=== PATIENT | female | born 1960 ===

== ENCOUNTER 2016-08-16 23:05 | Inpatient (IN) | payer OTHER, SELFPAY ==
[2016-08-17 00:25] LABS: BASO # 0.1 K/uL (0.0-0.2); BASO % 0.6 % (0.0-2.0); EOS # 0.2 K/uL (0.0-0.7); EOS % 1.9 % (0.0-4.0); HEMATOCRIT 39.8 % (34.0-47.0); LYMPH # 4.4 K/uL (1.0-4.3); LYMPH % 45.4 % (20.0-40.0); MEAN CELL VOLUME 87.3 fl (81.0-99.0); MEAN CORPUSCULAR HEMOGLOBIN 28.4 pg (27.0-31.0); MEAN CORPUSCULAR HGB CONC 32.6 g/dL (33.0-37.0); MEAN PLATELET VOLUME 7.9 fl (7.2-11.7); MONO # 0.7 K/uL (0.0-0.8); MONO % 7.5 % (0.0-10.0); NEUT # 4.3 K/uL (1.8-7.0); NEUT % 44.6 % (50.0-75.0); NRBC % 0.1 % (0.0-0.0); RED CELL DISTRIBUTION WIDTH 13.3 % (11.5-14.5); WHITE BLOOD COUNT 9.7 K/uL (4.8-10.8)
[2016-08-17 00:33] LABS: ALB/GLOB RATIO 1.1 (1.0-2.1); ALKALINE PHOSPHATASE 76 U/L (38-126); ALT/SGPT 34 U/L (9-52); AST/SGOT 28 U/L (14-36); BILIRUBIN,TOTAL 0.4 mg/dl (0.2-1.3); BLOOD UREA NITROGEN 14 mg/dl (7-17); CALCIUM 10.1 mg/dL (8.4-10.2); CARBON DIOXIDE 28 mmol/L (22-30); CHLORIDE 100 mmol/L (98-107); GFR AFRICAN-AMERICAN > 60; GLUCOSE,RANDOM 142 mg/dL (65-105); POTASSIUM 3.9 MMOL/L (3.6-5.0); SODIUM 140 mmol/l (132-148); TOTAL PROTEIN 8.3 G/DL (6.3-8.2)
--- NOTE | 2016-08-17 00:51 | ED PDOC ---
HPI: General Adult Time Seen by Provider: 08/16/16 23:30 Chief Complaint (Nursing): Chest Pain Chief Complaint (Provider): left sided numbness and chest pain History Per: Patient History/Exam Limitations: no limitations Onset/Duration Of Symptoms: Days (2) Have you had recent travel within the past 21 days to any of the following countries: [place], [place], [place] or [place]?: No Current Symptoms Are (Timing): Still Present Additional Complaint(s): 55yo female with PMHx including diabetes, dyslipidemia, HTN presents to the ED with c/o left sided numbness and chest pain x 2 days. Patient reports numbness sensation to entire left side of body. Denies n/v, diaphoresis. Reports similar symptoms 1 year ago and had workup that was negative. Currently awaiting cardiac catheterization after being referred by her PCP (Dr. Lares) at the clinic. Past Medical History Reviewed: Historical Data, Nursing Documentation, Vital Signs Vital Signs: Last Vital Signs Temp 99 F 08/16/16 23:14 Pulse 84 08/16/16 23:14 Resp 18 08/16/16 23:14 BP 150/93 H 08/16/16 23:14 Pulse Ox 100 08/16/16 23:14 - Medical History PMH: Diabetes, HTN, Hypercholesterolemia Denies: Chronic Kidney Disease Other PMH: dyslipidemia - Surgical History Surgical History: - Family History Family History: States: No Known Family Hx - Social History Current smoker - smoking cessation education provided: No Alcohol: None Drugs: Denies - Home Medications Home Medications: Ambulatory Orders Medication Instructions Recorded Simvastatin [Zocor] 20 mg PO HS 11/08/14 Hydrochlorothiazide [HCTZ] 12.5 mg PO DAILY 08/26/15 GlipiZIDE [Glucotrol] 5 mg PO DAILY 08/17/16 metFORMIN [glucOPHAGE] 500 mg PO BID 08/17/16 - Allergies Allergies/Adverse Reactions: Allergies Allergy/AdvReac Type Severity Reaction Status Date / Time No Known Allergies Allergy Verified 03/05/16 18:09 Review of Systems ROS Statement: Except As Marked, All Systems Reviewed And Found Negative Constitutional: Positive for: Other (no diaphoresis ) Cardiovascular: Positive for: Chest Pain (left sided ) Gastrointestinal: Negative for: Nausea, Vomiting Neurological: Positive for: Numbness (left sided ) Physical Exam - Reviewed Nursing Documentation Reviewed: Yes Vital Signs Reviewed: Yes - Physical Exam Appears: Positive for: Well, No Acute Distress Head Exam: Positive for: ATRAUMATIC, NORMAL INSPECTION, NORMOCEPHALIC Skin: Positive for: Normal Color, Warm, Dry Eye Exam: Positive for: Normal appearance, EOMI, PERRL ENT: Positive for: Normal ENT Inspection Neck: Positive for: Normal, Painless ROM, Supple Cardiovascular/Chest: Positive for: Regular Rate, Rhythm. Negative for: Murmur , Tachycardia Respiratory: Positive for: Normal Breath Sounds. Negative for: Wheezing, Respiratory Distress Gastrointestinal/Abdominal: Positive for: Normal Exam, Bowel Sounds, Soft. Negative for: Tenderness Back: Positive for: Normal Inspection. Negative for: L CVA Tenderness, R CVA Tenderness Extremity: Positive for: Normal ROM. Negative for: Deformity, Swelling Neurologic/Psych: Positive for: Alert, Oriented - Laboratory Results Result Diagrams: 08/16/16 00:21 08/16/16 00:21 - ECG O2 Sat by Pulse Oximetry: 100 Pulse Ox Interpretation: Normal (RA) Medical Decision Making Medical Decision Makin: Impression: 55yo female w/ left sided chest pain and numbness in setting of known hx of diabetes, HTN, dyslipidemia Plan: CT head Labs EKG CXR Aspirin 324mg PO accucheck reassess 0025: CT head impression: No acute intracranial findings. Clinical correlation and followup is recommended as clinically warranted. 0050: Case discussed with family practice resident on-call and patient will be placed on chest pain obs. Labs reviewed, show no clinically significant abnormalities. CXR shows NAD. Dx: chest pain condition: fair Scribe Attestation: Documented by Anthony Jarvis acting as a scribe for Jose Becerra MD. Provider Scribe Attestation: All medical record entries made by the Scribe were at my direction and personally dictated by me. I have reviewed the chart and agree that the record accurately reflects my personal performance of the history, physical exam, medical decision making, and the department course for this patient. I have also personally directed, reviewed, and agree with the discharge instructions and disposition. Disposition - Clinical Impression Clinical Impression: Chest pain - Disposition Disposition Time: 00:50 Condition: FAIR - Pt Status Changed To: Hospital Disposition Of: Observation
[2016-08-17 00:59] LABS: PARTIAL THROMBOPLASTIN TIME 23.8 SECONDS (23.3-32.5)
--- NOTE | 2016-08-17 00:59 | CP.PCM.HP ---
History of Present Illness - History of Present Illness History of Present Illness: CC: 2 days of left sided numbness and chest pain 55 yo F with PMHx diabetes, dyslipidemia, HTN presents to the ED with c/o left sided numbness and chest pain x 2 days. Chest pain is described as left sided, burning type sensation. Aggravated by climbing stairs, alleviated by rest. Patient reports numbness sensation waxes and wanes to entire left side of body including her head. Patient also reports dyspnea on exertion x 1 month. Gets SOB after climbing 1 flight of stairs, reports not walking much at all. Reports similar symptoms 1 year ago and had workup that was negative. Denies history of ME or stroke. Denies ALARCON, syncope, focal weakness, blurry vision palpitations, n/v/ abd pain/diarrhea. Currently awaiting cardiac evaluation with Dr Cochran, referred by PCP after some T wave depression and LVH was seen on patient's EKG in clinic. Patient has a cardio appt at [facility] scheduled for September 15 PCP [facility] (Dr. Lares) PMH: diabetes, dyslipidemia, HTN PSH: hysterectomy, CS x2 SH: no tob, etoh, drugs Allergies: NKDA Meds: as per [facility] GlipiZIDE 5 MG Tablet once daily Hydrochlorothiazide 12.5 MG daily Metformin HCl 500 MG BID Simvastatin 40 MG daily ED Course: VS stable, afebrile, slightly elevated BP CT head wnl Labs EKG - some T wave changes, no ST elevation CXR Aspirin 324mg PO Present on Admission - Present on Admission Any Indicators Present on Admission: No Review of Systems - Review of Systems Review of Systems: see hpi Past Patient History - Infectious Disease Hx of Infectious Diseases: None - Tetanus Immunizations Tetanus Immunization: Unknown - Past Medical History & Family History Past Medical History?: Yes - Past Social History Alcohol: None Drugs: Denies - CARDIAC Hx Hypercholesterolemia: Yes Hx Hypertension: Yes - PULMONARY Hx Respiratory Disorders: No - NEUROLOGICAL Hx Neurological Disorder: No - HEENT Hx HEENT Problems: No - RENAL Hx Chronic Kidney Disease: No - ENDOCRINE/METABOLIC Hx Endocrine Disorders: Yes Hx Diabetes Mellitus Type 2: Yes - HEMATOLOGICAL/ONCOLOGICAL Hx Blood Disorders: No - INTEGUMENTARY Hx Dermatological Problems: No - MUSCULOSKELETAL/RHEUMATOLOGICAL Hx Musculoskeletal Disorders: No - GASTROINTESTINAL Hx Gastrointestinal Disorders: No - GENITOURINARY/GYNECOLOGICAL Hx Genitourinary Disorders: No - PSYCHIATRIC Hx Psychophysiologic Disorder: No Hx Substance Use: No - SURGICAL HISTORY Hx Hysterectomy: Yes - ANESTHESIA Hx Anesthesia: Yes Hx Anesthesia Reactions: No Meds Allergies/Adverse Reactions: Allergies Allergy/AdvReac Type Severity Reaction Status Date / Time No Known Allergies Allergy Verified 03/05/16 18:09 Physical Exam - Constitutional Appears: Non-toxic, No Acute Distress - Head Exam Head Exam: ATRAUMATIC - Eye Exam Eye Exam: EOMI Pupil Exam: PERRL - ENT Exam ENT Exam: Mucous Membranes Moist - Neck Exam Neck exam: Positive for: Full Rom. Negative for: Tenderness - Respiratory Exam Respiratory Exam: Clear to Auscultation Bilateral, NORMAL BREATHING PATTERN. absent: Rales, Rhonchi, Wheezes, Stridor - Cardiovascular Exam Cardiovascular Exam: +S1, +S2. absent: JVD - GI/Abdominal Exam GI & Abdominal Exam: Normal Bowel Sounds, Soft. absent: Guarding, Tenderness - Extremities Exam Extremities exam: Positive for: normal inspection. Negative for: calf tenderness, pedal edema - Neurological Exam Neurological exam: Alert, CN II-XII Intact, Oriented x3 - Psychiatric Exam Psychiatric exam: Normal Affect, Normal Mood - Skin Skin Exam: Dry, Normal Color, Warm Results - Vital Signs Recent Vital Signs: Last Vital Signs Temp 99 F 08/16/16 23:14 Pulse 84 08/16/16 23:14 Resp 18 08/16/16 23:14 BP 150/93 H 08/16/16 23:14 Pulse Ox 100 08/17/16 00:55 - Labs Result Diagrams: 08/16/16 00:21 08/16/16 00:21 Assessment & Plan - Assessment and Plan (Free Text) Plan: 55 yo F with PMHx diabetes, dyslipidemia, HTN admitted for left sided numbness and chest pain x 2 days. Chest pain ED Course: VS stable, afebrile, slightly elevated BP CT head wnl CBC, CMP Troponins x 1 negative EKG - some T wave changes, no ST elevation CXR - appears WNL Aspirin 324mg PO admit to telemetry cardiac monitoring trop Q8H x 2 Last ECHO 2014: EF>50%, normal ECHO repeat ECHO in AM in lieu of risk factors and new EKG findings Patient has a cardio appt at [facility] scheduled for September 15 morphine for pain aspirin daily BP control Left sided numbness CT head: no abnormal findings DM controlled c/w metformin BID and glipizide daily HTN controlled HCTZ 12.5 mg daily PPx DVT - ambulates, SCDs Diet diabetic diet, HH
[2016-08-17 05:48] VITALS: BMI 33.6
[2016-08-17] MEDS ORDERED: Pneumococcal 23-Valent Vaccine IM ONE (06:00)
[2016-08-17 07:44] LABS: GFR AFRICAN-AMERICAN > 60
[2016-08-17 07:45] LABS: BLOOD UREA NITROGEN 13 mg/dl (7-17); GLUCOSE,RANDOM 136 mg/dL (65-105); POTASSIUM 4.1 MMOL/L (3.6-5.0); SODIUM 141 mmol/l (132-148)
[2016-08-17 07:46] LABS: CALCIUM 9.5 mg/dL (8.4-10.2); CARBON DIOXIDE 28 mmol/L (22-30); CHLORIDE 102 mmol/L (98-107)
[2016-08-17 08:07] LABS: HEMATOCRIT 37.2 % (34.0-47.0); MEAN CELL VOLUME 86.9 fl (81.0-99.0); MEAN CORPUSCULAR HEMOGLOBIN 28.5 pg (27.0-31.0); MEAN CORPUSCULAR HGB CONC 32.8 g/dL (33.0-37.0); MEAN PLATELET VOLUME 8.2 fl (7.2-11.7); RED CELL DISTRIBUTION WIDTH 13.4 % (11.5-14.5); WHITE BLOOD COUNT 8.6 K/uL (4.8-10.8)
[2016-08-17] MEDS ORDERED: HYDROCHLOROTHIAZIDE 12.5 MG PO SCH (09:00)
--- NOTE | 2016-08-17 09:47 | RAD ---
HISTORY: admit COMPARISON: 03/05/2016 TECHNIQUE: Chest PA and lateral FINDINGS: LUNGS: No active pulmonary disease. PLEURA: No significant pleural effusion identified. No pneumothorax apparent. CARDIOVASCULAR: Normal. OSSEOUS STRUCTURES: Minor multilevel degenerative spondylosis of the thoracic spine VISUALIZED UPPER ABDOMEN: Normal. OTHER FINDINGS: None. IMPRESSION: No active disease.
--- NOTE | 2016-08-17 09:56 | CT ---
PROCEDURE: CT HEAD WITHOUT CONTRAST. HISTORY: headache COMPARISON: None available. TECHNIQUE: Axial computed tomography images were obtained through the head/brain without intravenous contrast. Radiation dose: Total exam DLP = 851.21 mGy-cm. This CT exam was performed using one or more of the following dose reduction techniques: Automated exposure control, adjustment of the mA and/or kV according to patient size, and/or use of iterative reconstruction technique. FINDINGS: HEMORRHAGE: No intracranial hemorrhage. BRAIN: There appears to be minor chronic periventricular white matter ischemic changes extending peripherally into the deep white matter both cerebral hemispheres. Mild age-appropriate generalized volume loss VENTRICLES: No evidence of obstructive hydrocephalus. CALVARIUM: Unremarkable. PARANASAL SINUSES: Unremarkable as visualized. No significant inflammatory changes. MASTOID AIR CELLS: Unremarkable as visualized. No inflammatory changes. OTHER FINDINGS: None. IMPRESSION: No acute intracranial hemorrhage. Minor chronic periventricular white matter ischemic changes and mild age related volume loss.
--- NOTE | 2016-08-17 12:09 | CARD ---
APPROVED REPORT EXAM: Two-dimensional and M-mode echocardiogram with Doppler and color Doppler. Other Information Quality : GoodRhythm : NSR INDICATION Chest Pain 2D DIMENSIONS IVSd1.17 (0.7-1.1cm)LVDd4.00 (3.9-5.9cm) LVOT Diameter2.03 (1.8-2.4cm)PWd0.93 (0.7-1.1cm) IVSs1.39 (0.8-1.2cm)LVDs2.36 (2.5-4.0cm) FS (%) 41.0 %PWs1.30 (0.8-1.2cm) M-Mode DIMENSIONS Left Atrium (MM)4.06 (2.5-4.0cm)IVSd0.79 (0.7-1.1cm) Aortic Root2.94 (2.2-3.7cm)LVDd5.21 (4.0-5.6cm) Aortic Cusp Exc.2.06 (1.5-2.0cm)PWd0.79 (0.7-1.1cm) IVSs1.29 cmFS (%) 51 % LVDs2.56 (2.0-3.8cm)PWs1.53 cm Mitral Valve MV E Twcfaxzu38.2cm/sMV DECEL [id number] A Ybaqiwao16.8cm/s MV CXB47zbE/A ratio0.7MVA (PHT)2.82cm2 TDI Lateral E' Peak V8.31cm/sMedial E' Peak V6.52cm/sE/Lateral E'7.0 E/Medial E'8.9 Pulmonary Valve PV Peak Hrbrhljd511.5cm/s LEFT VENTRICLE The left ventricle is normal size. There is normal left ventricular wall thickness. The left ventricular function is normal. The left ventricular ejection fraction is within the normal range. The Ejection Fraction is 65-70%. There is normal LV segmental wall motion. The left ventricular diastolic function is normal. No left ventricle thrombus noted on this study. There is no mass noted in the left ventricle. RIGHT VENTRICLE The right ventricle is normal size. There is normal right ventricular wall thickness. The right ventricular systolic function is normal. ATRIA The left atrium size is normal. The right atrium size is normal. The interatrial septum is intact with no evidence for an atrial septal defect. AORTIC VALVE The aortic valve is normal in structure and function. No aortic regurgitation is present. There is no aortic valvular stenosis. There is no aortic valvular vegetation. MITRAL VALVE The mitral valve is normal in structure and function. There is no evidence of mitral valve prolapse. There is no mitral valve stenosis. There is no mitral valve regurgitation noted. TRICUSPID VALVE The tricuspid valve is normal in structure and function. There is no tricuspid valve regurgitation noted. There is no tricuspid valve prolapse or vegetation. There is no tricuspid valve stenosis. PULMONIC VALVE The pulmonary valve is normal in structure and function. There is no pulmonic valvular regurgitation. There is no pulmonic valvular stenosis. GREAT VESSELS The aortic root is normal in size. The IVC is normal in size and collapses >50% with inspiration. PERICARDIAL EFFUSION The pericardium appears normal. There is no pleural effusion. <Conclusion> The left ventricle is normal size. The left ventricular function is normal. The left ventricular ejection fraction is within the normal range. The Ejection Fraction is 65-70%.
--- NOTE | 2016-08-17 12:18 | CON ---
DATE: 08/17/2016 REASON FOR CONSULTATION: Chest pain. HISTORY OF PRESENT ILLNESS: The patient is a 55-year-old female who has history of hyperten zoë, diabetes mellitus, is being followed in the clinic. She presented because of chest pain radiat ing to left shoulder and left arm. The patient is unaware of any prior cardiac catheterization or in tervention in the past. SOCIAL HISTORY: The patient is a nonsmoker, nondrinker. MEDICATIONS: Aspirin 81 mg once a day, metformin 500 mg twice a day, glipizide 5 mg daily, Lipitor 2 0 mg at bedtime, Lovenox 40 mg subcutaneously daily, hydrochlorothiazide 12.5 mg once a day. REVIEW OF SYSTEMS: No fever or chills. No vomiting or diarrhea. PHYSICAL EXAMINATION: GENERAL: The patient is a middle-aged female who does not appear to be in any distress. VITAL SIGNS: Blood pressure 116/73, heart rate 72, temperature 98.3, respirations 20. HEENT: Normocephalic. NECK: No JVD. CHEST: Clear. HEART: S1, S2 regular. ABDOMEN: Soft. EXTREMITIES: No edema. LABORATORY DATA: CBC is within normal limits except for MCHC of 8.8. SMA-7 on admission is within n ormal limits except for glucose of 142. Two sets of troponins are negative. PT, PTT are within norm al limits. EKG reveals sinus rhythm with lateral T-wave inversion. ASSESSMENT: 1. Chest pain, myocardial infarction is ruled out. 2. Consider underlying coronary artery disease. 3. Hypertension and diabetes mellitus. RECOMMENDATIONS: Continue current aspirin, Lipitor, subcutaneous Lovenox, start Tenormin at 25 mg on ce a day. Cardiac catheterization was recommended and was fully discussed with the patient and her d emile on the phone. The daughter was conducting the translation on the phone. I stated to the pat yusuf and the daughter, if the patient agrees to stay until Saturday, she will undergo cardiac catheteri zation at the [facility] cardiac catheterization facility. The patient and her daughter will think ab out staying until Saturday before giving any decision. Otherwise, the cardiac catheterization should b e scheduled as an outpatient if the patient decides to leave. Bar Mendoza MD cc: [id number] TT: 08/17/2016 12:17:36 Confirmation # [id number] Dictation # [id number]
[2016-08-17] MEDS ORDERED: Enoxaparin 40 mg Syringe SC SCH (20:00)
[2016-08-18 05:45] VITALS: RESP 18; O2SAT 97
--- NOTE | 2016-08-18 07:15 | CP.PCM.PN ---
Objective - Vital Signs/Intake and Output Vital Signs (last 24 hours): Temp Pulse Resp BP Pulse Ox 98.2 F 68 18 110/74 97 08/18/16 05:00 08/18/16 05:00 08/18/16 05:00 08/18/16 05:00 08/18/16 05:00 - Medications Medications: Current Medications Acetaminophen (Tylenol 325mg Tab) 650 mg PO Q6 PRN PRN Reason: Pain, Mild (1-3) Aspirin (Aspirin Chewable) 81 mg PO DAILY [facility] Last Admin: 08/17/16 09:29 Dose: 81 mg Atenolol (Tenormin) 25 mg PO DAILY [facility] Atorvastatin Calcium (Lipitor) 20 mg PO HS [facility] Last Admin: 08/17/16 23:03 Dose: 20 mg Clopidogrel Bisulfate (Plavix) 75 mg PO DAILY [facility] Last Admin: 08/17/16 12:00 Dose: 75 mg Enoxaparin Sodium (Lovenox) 40 mg SC DAILY@2000 [facility] PRN Reason: Protocol Last Admin: 08/17/16 20:08 Dose: Not Given Glipizide (Glucotrol) 5 mg PO DAILY [facility] Last Admin: 08/17/16 09:29 Dose: 5 mg Hydrochlorothiazide (Microzide) 12.5 mg PO DAILY [facility] Last Admin: 08/17/16 09:30 Dose: 12.5 mg Morphine Sulfate (Morphine) 2 mg IVP Q4 PRN PRN Reason: Pain, moderate (4-7) Ondansetron HCl (Zofran Inj) 4 mg IVP Q6 PRN PRN Reason: Nausea/Vomiting Last Admin: 08/17/16 22:13 Dose: 4 mg - Labs Labs: 08/17/16 06:30 08/17/16 06:30 PT 9.9 SECONDS (9.6-11.2) 08/16/16 00:21 INR 0.95 (0.92-1.08) 08/16/16 00:21 APTT 23.8 SECONDS (23.3-32.5) 08/16/16 00:21
[2016-08-18 07:58] VITALS: TEMP 98.1
--- NOTE | 2016-08-18 09:20 | CARD ---
APPROVED REPORT EKG Measurement Heart [id number] MO [id number] <Conclusion> Normal sinus rhythm ST & T wave abnormality, consider lateral ischemia Abnormal ECG
--- NOTE | 2016-08-18 09:26 | CARD ---
APPROVED REPORT EKG Measurement Heart [id number] ID [id number] <Conclusion> Normal sinus rhythm Nonspecific T wave abnormality Abnormal ECG
--- NOTE | 2016-08-18 09:53 | CP.PCM.DIS ---
Provider - Provider Date of Admission: 08/17/16 00:17 Attending physician: Janet Porter MD Primary care physician: Saritha Lares MD Consults: cardiology: Arthur Ybarra Time Spent in preparation of Discharge (in minutes): 45 Diagnosis - Discharge Diagnosis (1) Chest pain in adult Status: Resolved Priority: Low Comment: cardiac catheterization: unremarkable, medical management Hospital Course - Lab Results Lab Results: Most Recent Lab Values WBC 8.6 K/uL (4.8-10.8) 08/17/16 06:30 RBC 4.28 Mil/uL (3.80-5.20) 08/17/16 06:30 Hgb 12.2 g/dL (12.0-16.0) 08/17/16 06:30 Hct 37.2 % (34.0-47.0) 08/17/16 06:30 MCV 86.9 fl (81.0-99.0) 08/17/16 06:30 MCH 28.5 pg (27.0-31.0) 08/17/16 06:30 MCHC 32.8 g/dL (33.0-37.0) L 08/17/16 06:30 RDW 13.4 % (11.5-14.5) 08/17/16 06:30 Plt Count 292 K/uL (130-400) 08/17/16 06:30 MPV 8.2 fl (7.2-11.7) 08/17/16 06:30 Neut % (Auto) 44.6 % (50.0-75.0) L 08/16/16 00:21 Lymph % (Auto) 45.4 % (20.0-40.0) H 08/16/16 00:21 Wilkinson % (Auto) 7.5 % (0.0-10.0) 08/16/16 00:21 Eos % (Auto) 1.9 % (0.0-4.0) 08/16/16 00:21 Baso % (Auto) 0.6 % (0.0-2.0) 08/16/16 00:21 Neut # 4.3 K/uL (1.8-7.0) 08/16/16 00:21 Lymph # 4.4 K/uL (1.0-4.3) H 08/16/16 00:21 Wilkinson # 0.7 K/uL (0.0-0.8) 08/16/16 00:21 Eos # 0.2 K/uL (0.0-0.7) 08/16/16 00:21 Baso # 0.1 K/uL (0.0-0.2) 08/16/16 00:21 PT 9.9 SECONDS (9.6-11.2) 08/16/16 00:21 INR 0.95 (0.92-1.08) 08/16/16 00:21 APTT 23.8 SECONDS (23.3-32.5) 08/16/16 00:21 Sodium 141 mmol/l (132-148) 08/17/16 06:30 Potassium 4.1 MMOL/L (3.6-5.0) 08/17/16 06:30 Chloride 102 mmol/L (98-107) 08/17/16 06:30 Carbon Dioxide 28 mmol/L (22-30) 08/17/16 06:30 Anion Gap 15 (10-20) 08/17/16 06:30 BUN 13 mg/dl (7-17) 08/17/16 06:30 Creatinine 0.6 mg/dL (0.7-1.2) L 08/17/16 06:30 Est GFR ( Amer) > 60 08/17/16 06:30 Est GFR (Non-Af Amer) > 60 08/17/16 06:30 POC Glucose (mg/dL) 134 mg/dL (65-110) H 08/18/16 05:28 Random Glucose 136 mg/dL (65-105) H 08/17/16 06:30 Calcium 9.5 mg/dL (8.4-10.2) 08/17/16 06:30 Total Bilirubin 0.4 mg/dl (0.2-1.3) 08/16/16 00:21 AST 28 U/L (14-36) 08/16/16 00:21 ALT 34 U/L (9-52) 08/16/16 00:21 Alkaline Phosphatase 76 U/L (38-126) 08/16/16 00:21 Troponin I < 0.0120 ng/mL (0.00-0.120) 08/17/16 09:35 Total Protein 8.3 G/DL (6.3-8.2) H 08/16/16 00:21 Albumin 4.4 g/dL (3.5-5.0) 08/16/16 00:21 Globulin 3.9 gm/dL (2.2-3.9) 08/16/16 00:21 Albumin/Globulin Ratio 1.1 (1.0-2.1) 08/16/16 00:21 - Hospital Course Hospital Course: 55 yo F with PMHx diabetes, dyslipidemia, HTN presents to the ED with c/o left sided numbness and chest pain x 2 days admitted to rule out ACS. Troponin negative, ekg showed t wave inversion, ct head: unremarkable. Cardiology consulted, performed cardiac catherization which was unremarkable, and recommended medical management at this time with Aspirin, statin, hctz and atenolol. Continue with home medication: Simvastatin [Zocor] 20 mg PO HS Hydrochlorothiazide [HCTZ] 12.5 mg PO DAILY GlipiZIDE [Glucotrol] 5 mg PO DAILY metFORMIN [glucOPHAGE] 500 mg PO BID New Discharge rx: atenolol 25mg po once Appointment scheduled with Dr. Lares on September 13 2016 @1:20pm Pt states she has an appointment with Estela Shaw (cardiology) in September. Discharge Exam - Head Exam Head Exam: ATRAUMATIC - Additional Findings Additional findings: Constitutional Appears: Non-toxic, No Acute Distress - Head Exam Head Exam: ATRAUMATIC - Eye Exam Eye Exam: EOMI Pupil Exam: PERRL - ENT Exam ENT Exam: Mucous Membranes Moist - Neck Exam Neck exam: Positive for: Full Rom. Negative for: Tenderness - Respiratory Exam Respiratory Exam: Clear to Auscultation Bilateral, NORMAL BREATHING PATTERN. absent: Rales, Rhonchi, Wheezes, Stridor - Cardiovascular Exam Cardiovascular Exam: +S1, +S2. absent: JVD - GI/Abdominal Exam GI & Abdominal Exam: Normal Bowel Sounds, Soft. absent: Guarding, Tenderness - Extremities Exam Extremities exam: Positive for: normal inspection. Negative for: calf tenderness, pedal edema - Neurological Exam Neurological exam: Alert, CN II-XII Intact, Oriented x3 - Psychiatric Exam Psychiatric exam: Normal Affect, Normal Mood - Skin Skin Exam: Dry, Normal Color, Warm Discharge Plan - Discharge Medications Prescriptions: GlipiZIDE [Glucotrol] 5 mg PO DAILY #30 - Follow Up Plan Condition: FAIR Disposition: HOME/ ROUTINE Patient education suggested?: Yes Instructions: Angina (GEN), Angina (DC) Additional Instructions: Pt has appointment with cardiology, Anthony Shaw in September. Referrals: Saritha Lares MD [Primary Care Provider] - 09/13/16 1:20 pm
[2016-08-18 12:12] VITALS: BP 109/70; PULSE 70
--- NOTE | 2016-08-18 13:57 | PN ---
DATE: 08/18/2016 The patient denies chest pain or groin bleeding. VITAL SIGNS: Blood pressure 109/70, heart rate 70, temperature 98.1, respirations 18. GROIN: Revealed no bleeding or hematoma. ASSESSMENT: 1. Chest pain with left cardiac catheterization revealed unremarkable coronary circulation. 2. Hypertension, diabetes mellitus. RECOMMENDATIONS: The case is discussed with the medical team. Discontinue Plavix. The patient can be discharged on aspirin, Lipitor, hydrochlorothiazide and atenolol therapy. Bar Mendoza MD cc: [id number] TT: 08/18/2016 13:56:25 Confirmation # [id number] Dictation # [id number]
== END 2016-08-18 14:45 | disposition home or self-care (01) | DRG 125 ==
LOC: H.ER 23:05 → H.ERHOLD 08-17 00:17 → OBSVTOIN 08-17 00:17 → H.TEL 08-17 02:04
PROVIDERS: ADMIT Family Medicine Geriatric Medicine; ATTEND Family Medicine Geriatric Medicine
PROC: B206YZZ Plain Radiography of Right and Left Heart using Other Contrast (ICD-10-PCS; principal; 2016-08-17)
PROC: B201YZZ Plain Radiography of Multiple Coronary Arteries using Other Contrast (ICD-10-PCS; 2016-08-17)
PROC: 3E0234Z Introduction of Serum, Toxoid and Vaccine into Muscle, Percutaneous Approach (ICD-10-PCS; 2016-08-17)
DX: R07.9 Chest pain, unspecified (principal); I10 Essential (primary) hypertension; E11.9 Type 2 diabetes mellitus without complications; E78.5 Hyperlipidemia, unspecified; Z23 Encounter for immunization; E78.00 Pure hypercholesterolemia, unspecified; R20.0 Anesthesia of skin

== ENCOUNTER 2017-07-06 10:41 | Emergency (ER) | payer SELFPAY ==
[2017-07-06 10:49] VITALS: BP 133/80; PULSE 72; TEMP 98.2; O2SAT 99
[2017-07-06 10:50] VITALS: BMI 32.5
[2017-07-06 11:36] VITALS: RESP 18
--- NOTE | 2017-07-06 11:48 | ED PDOC ---
Lower Extremity Pain/Injury Time Seen by Provider: 07/06/17 11:28 Chief Complaint (Nursing): Trauma Chief Complaint (Provider): right foot and ankle pain History Per: Patient Additional Complaint(s): 56-year-old female presents with right foot and ankle pain status post trip and fall yesterday. Patient states there was a hole in the ground and she accidentally got her foot caught in a hole. Patient did not sustain loss of consciousness or head injury. She has been able to bear weight but has pain when doing so. Patient took Advil yesterday which did help somewhat. PMD: [place] [facility] Past Medical History Reviewed: Historical Data, Nursing Documentation, Vital Signs Vital Signs: Last Vital Signs Temp 98.2 F 07/06/17 11:34 Pulse 72 07/06/17 11:34 Resp 18 07/06/17 11:34 BP 133/80 07/06/17 11:34 Pulse Ox 99 07/06/17 11:34 - Medical History PMH: Diabetes, HTN, Hypercholesterolemia, Hyperlipidemia - Surgical History Surgical History: (x 2) Other surgeries: hysterectomy - Family History Family History: States: No Known Family Hx - Living Arrangements Living Arrangements: With Family - Social History Current smoker - smoking cessation education provided: No Alcohol: Social Drugs: Denies - Home Medications Home Medications: Ambulatory Orders Medication Instructions Recorded Simvastatin [Zocor] 40 mg PO HS 11/08/14 Hydrochlorothiazide [HCTZ] 12.5 mg PO DAILY 08/26/15 metFORMIN [glucOPHAGE] 500 mg PO BID 08/17/16 Aspirin [Aspirin Chewable] 81 mg PO DAILY 08/18/16 Atenolol [Tenormin] 25 mg PO DAILY #0 tab 08/18/16 Atorvastatin [Lipitor] 20 mg PO HS #0 tab 08/18/16 GlipiZIDE [Glucotrol] 5 mg PO DAILY #30 08/18/16 hydroCHLOROthiazide [Microzide] 12.5 mg PO DAILY cap 08/18/16 Ibuprofen [Motrin Tab] 800 mg PO Q8 PRN #20 tab 07/06/17 - Allergies Allergies/Adverse Reactions: Allergies Allergy/AdvReac Type Severity Reaction Status Date / Time No Known Allergies Allergy Verified 08/17/16 13:36 Review of Systems ROS Statement: Except As Marked, All Systems Reviewed And Found Negative Musculoskeletal: Positive for: Other (right foot and ankle injury) Physical Exam - Reviewed Nursing Documentation Reviewed: Yes Vital Signs Reviewed: Yes - Physical Exam Appears: Positive for: Well, Non-toxic, No Acute Distress Skin: Negative for: Rash Eye Exam: Positive for: Normal appearance Cardiovascular/Chest: Positive for: Regular Rate, Rhythm Respiratory: Positive for: Normal Breath Sounds Extremity: Positive for: Other (Swelling and tenderness to dorso-lateral aspect of right foot and right lateral malleolus, no obvious bony deformity, palpable pulses and normal distal sensation) Neurologic/Psych: Positive for: Alert, Oriented - ECG O2 Sat by Pulse Oximetry: 99 Pulse Ox Interpretation: Normal - Other Rad Right foot and ankle x-ray X-Ray: Interpreted by Me, Viewed By Me X-Ray Interpretation: no fx, no dis Medical Decision Making Medical Decision Makin-year-old female with right foot and ankle pain Plan: Pain meds declined X-ray right foot and ankle Patient is aware of x-ray results. Crutches given, see procedure note. Rx motrin, podiatry clinic follow up provided. Procedures - Splinting Location: right foot/ankle Pre-Made Type: ae wrap, ortho shoe Pre-Proc Neuro Vasc Exam: normal Post-Proc Neuro Vasc Exam: normal Disposition - Clinical Impression Clinical Impression: Strain of ankle and foot - Patient ED Disposition Is Patient to be Admitted: No Counseled Patient/Family Regarding: Studies Performed, Diagnosis, Need For Followup, Rx Given - Disposition Referrals: Podiatry Clinic [Outside] Disposition: Routine/Home Disposition Time: 12:54 Condition: STABLE Additional Instructions: Ice, rest and elevate affected area. Take rx meds as directed. Follow up with podiatry clinic in 2-3 days. Prescriptions: Ibuprofen [Motrin Tab] 800 mg PO Q8 PRN #20 tab PRN Reason: Pain, Moderate (4-7) Instructions: Ankle Sprain, Foot Sprain (DC) Forms: [employer] (Kazakh) Print Language: SERBIAN
--- NOTE | 2017-07-06 14:02 | RAD ---
PROCEDURE: Right ankle radiographs HISTORY: Trauma COMPARISON: No prior FINDINGS: BONES: No evidence of acute displaced fracture nor dislocation. Made. There is a tiny corticated bony density within the soft tissues subjacent to the inferolateral margin of the right distal fibula which probably represent some all posttraumatic mineralization. In addition, there are degenerative changes of the tibiotalar articulation with osteophyte formation seen arising from the inferior or medial tip medial malleolus. Small to medium-sized plantar and tiny posterior calcaneal enthesophyte formation. There appears to be minimal soft tissue swelling overlying the lateral malleolus. JOINTS: As above. SOFT TISSUES: Minimal soft tissue swelling overlying the lateral malleolus OTHER FINDINGS: None. IMPRESSION: No evidence of acute displaced fracture nor dislocation. Mild degenerative osteoarthritis. Minor soft tissue swelling overlying lateral malleolus
--- NOTE | 2017-07-06 14:22 | RAD ---
PROCEDURE: Right Foot Radiographs. HISTORY: Trauma COMPARISON: Correlation made with concurrent radiographs of the right ankle. FINDINGS: BONES: No evidence of acute displaced fracture nor dislocation. The osseous structures appear intact. No cortical destructive changes. There are small plantar and posterior surface calcaneal enthesophytes. JOINTS: Mild degenerative osteoarthritis right tibiotalar articulation. SOFT TISSUES: Minor soft tissue swelling overlying the lateral malleolus less well appreciated on this study compared to dedicated right ankle radiographs. OTHER FINDINGS: None. IMPRESSION: No evidence of acute displaced fracture nor dislocation. 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
== END 2017-07-06 13:52 | disposition home or self-care (01) ==
LOC: H.ER 10:41
DX: S93.401A Sprain of unspecified ligament of right ankle, initial encounter (principal); S99.921A Unspecified injury of right foot, initial encounter; W19.XXXA Unspecified fall, initial encounter; Y92.89 Other specified places as the place of occurrence of the external cause; E11.9 Type 2 diabetes mellitus without complications; E78.00 Pure hypercholesterolemia, unspecified; I10 Essential (primary) hypertension; Z79.82 Long term (current) use of aspirin; Z79.84 Long term (current) use of oral hypoglycemic drugs; Z90.710 Acquired absence of both cervix and uterus

== ENCOUNTER 2017-11-07 11:14 | Emergency (ER) | payer SELFPAY ==
[2017-11-07 11:14] VITALS: BMI 32.5
[2017-11-07 11:23] VITALS: TEMP 98.4; O2SAT 99
--- NOTE | 2017-11-07 13:43 | ED PDOC ---
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 states for the past week she's had atraumatic lower back pain radiating down to b/l back of thighs. States symptoms are worse with movement. Denies trauma, incontinence, abd pain, N/V/D, fever, hx of kidney stones. Of note, pt. has been using multiple OTC pain meds without relief. Has not taken any meds today. Past Medical History Reviewed: Historical Data, Nursing Documentation, Vital Signs Vital Signs: Last Vital Signs Temp 98.4 F 11/07/17 11:23 Pulse 77 11/07/17 11:23 Resp 19 11/07/17 11:23 BP 153/77 H 11/07/17 11:23 Pulse Ox 99 11/07/17 11:23 - Medical History PMH: Diabetes, HTN, Hypercholesterolemia, Hyperlipidemia Denies: Chronic Kidney Disease - Surgical History Surgical History: (x 2) - Family History Family History: States: Unknown Family Hx - Home Medications Home Medications: Ambulatory Orders Medication Instructions Recorded Simvastatin [Zocor] 40 mg PO HS 11/08/14 Hydrochlorothiazide [HCTZ] 12.5 mg PO DAILY 08/26/15 metFORMIN [glucOPHAGE] 500 mg PO BID 08/17/16 Aspirin [Aspirin Chewable] 81 mg PO DAILY 08/18/16 Atenolol [Tenormin] 25 mg PO DAILY #0 tab 08/18/16 Atorvastatin [Lipitor] 20 mg PO HS #0 tab 08/18/16 GlipiZIDE [Glucotrol] 5 mg PO DAILY #30 08/18/16 hydroCHLOROthiazide [Microzide] 12.5 mg PO DAILY cap 08/18/16 Ibuprofen [Motrin Tab] 800 mg PO Q8 PRN #20 tab 07/06/17 Meloxicam [Mobic] 1 - 2 tab PO DAILY PRN #30 tab 11/07/17 Methocarbamol [Robaxin] 500 mg PO TID PRN #15 tab 11/07/17 - Allergies Allergies/Adverse Reactions: Allergies Allergy/AdvReac Type Severity Reaction Status Date / Time No Known Allergies Allergy Verified 08/17/16 13:36 Review of Systems ROS Statement: Except As Marked, All Systems Reviewed And Found Negative Musculoskeletal: Positive for: Back Pain Physical Exam - Physical Exam Appears: Positive for: Well, Non-toxic, No Acute Distress Skin: Positive for: Normal Color, Warm. Negative for: Rash Eye Exam: Positive for: Normal appearance Cardiovascular/Chest: Positive for: Regular Rate, Rhythm Respiratory: Positive for: Normal Breath Sounds. Negative for: Respiratory Distress Pulses-Dorsalis Pedis (L): 2+ Pulses-Dorsalis Pedis (R): 2+ Gastrointestinal/Abdominal: Positive for: Normal Exam, Soft. Negative for: Tenderness Back: Positive for: Normal Inspection, Muscle Spasm (b/l paralumbar tenderness) , Other (SLR negative b/l). Negative for: L CVA Tenderness, R CVA Tenderness Extremity: Positive for: Normal ROM, Other (equal strength on b/l lower extremities). Negative for: Calf Tenderness (b/l) Neurologic/Psych: Positive for: Alert, Oriented (x3) - Laboratory Results Urine dip results: Positive for: Blood (trace). Negative for: Leukocyte Esterase, Nitrate, Ketones, Glucose, Bilirubin, Protein - ECG O2 Sat by Pulse Oximetry: 99 - Radiology X-Ray: Interpreted by Me (LS spine x-ray) X-Ray Interpretation: No Acute Disease - Progress ED Course And Treament: Toradol 30mg IM, flexeril 10mg PO, LS spine x-rays ordered. Discussed need for f/u for possible MRI and care with use of crusher screen repairer [id number]. Disposition - Clinical Impression Clinical Impression: Sciatica - Patient ED Disposition Is Patient to be Admitted: No - Disposition Referrals: [facility] [Outside] [facility] [Outside] Disposition: Routine/Home Disposition Time: 13:46 Condition: IMPROVED Additional Instructions: JOCELIN SKY, thank you for letting us take care of you today. Your provider was Gaby Atkinson MD and you were treated for BACK PAIN. The emergency medical care you received today was directed at your acute symptoms. If you were prescribed any medication, please fill it and take as directed. It may take several days for your symptoms to resolve. Return to the Emergency Department if your symptoms worsen, do not improve, or if you have any other problems. Please contact your doctor or call one of the physicians/clinics you have been referred to that are listed on the Patient Visit Information form that is included in your discharge packet. Bring any paperwork you were given at discharge with you along with any medications you are taking to your follow up visit. Our treatment cannot replace ongoing medical care by a primary care provider outside of the emergency department. Thank you for allowing the [facility] team to be part of your care today. If you had an X-Ray or CT scan: A Radiologist will review the ED reading if any change in treatment is needed we will contact you. If you had a blood, urine, or wound culture: It will take several days for the results, if any change in treatment is needed we will contact you. If you had an STI test: It will take 48 hours for the results. Please call after 1 week if you have not heard back. Prescriptions: Meloxicam [Mobic] 1 - 2 tab PO DAILY PRN #30 tab PRN Reason: Pain Methocarbamol [Robaxin] 500 mg PO TID PRN #15 tab PRN Reason: Muscle Spasm Instructions: Sciatica (DC) Forms: [employer] (Grenadian) Print Language: CAPE VERDEAN
--- NOTE | 2017-11-07 14:38 | RAD ---
Date of service: 11/07/2017 PROCEDURE: Radiographs of the Lumbar Spine. HISTORY: trauma COMPARISON: No prior. FINDINGS: BONES: Mild dextroscoliosis without secondary degenerative change. No listhesis. No fracture. DISC SPACES: Unremarkable. OTHER FINDINGS: None. IMPRESSION: No acute findings related to/accounting for the clinical presentation.
[2017-11-07 14:53] VITALS: BP 142/74; PULSE 79; RESP 18
== END 2017-11-07 14:17 | disposition home or self-care (01) ==
LOC: H.ER 11:14
DX: M54.9 Dorsalgia, unspecified (principal); E11.9 Type 2 diabetes mellitus without complications; E78.00 Pure hypercholesterolemia, unspecified; I10 Essential (primary) hypertension; Z79.84 Long term (current) use of oral hypoglycemic drugs; Z79.82 Long term (current) use of aspirin
CPT/HCPCS: 72100; 96372; 99283; J1885

== ENCOUNTER 2018-03-03 11:57 | Emergency (ER) | payer SELFPAY ==
[2018-03-03 13:39] LABS: BASO # 0.1 K/uL (0.0-0.2); BASO % 0.8 % (0.0-2.0); EOS # 0.1 K/uL (0.0-0.7); EOS % 1.6 % (0.0-4.0); HEMOGLOBIN 12.7 g/dL (12.0-16.0); LYMPH # 2.5 K/uL (1.0-4.3); MEAN CELL VOLUME 88.2 fl (81.0-99.0); MEAN CORPUSCULAR HEMOGLOBIN 28.1 pg (27.0-31.0); MEAN CORPUSCULAR HGB CONC 31.9 g/dL (33.0-37.0); MONO # 0.5 K/uL (0.0-0.8); MONO % 7.9 % (0.0-10.0); NEUT # 3.2 K/uL (1.8-7.0); NEUT % 50.7 % (50.0-75.0); RBC 4.52 Mil/uL (3.80-5.20); RED CELL DISTRIBUTION WIDTH 13.3 % (11.5-14.5); WHITE BLOOD COUNT 6.4 K/uL (4.8-10.8)
[2018-03-03 13:50] LABS: BLOOD UREA NITROGEN 13 mg/dl (7-17); CALCIUM 9.4 mg/dL (8.4-10.2); GFR NON-AFRICAN AMERICAN > 60
--- NOTE | 2018-03-03 13:59 | RAD ---
Date of service: 03/03/2018 PROCEDURE: CHEST RADIOGRAPH, 1 VIEW HISTORY: chest pain COMPARISON: 07/01/2017 FINDINGS: LUNGS: Clear. PLEURA: No pneumothorax or pleural fluid seen. CARDIOVASCULAR: No aortic atherosclerotic calcification present. Normal. OSSEOUS STRUCTURES: No significant abnormalities. VISUALIZED UPPER ABDOMEN: Normal. OTHER FINDINGS: None. IMPRESSION: No active disease. No acute/significant interval changes.
--- NOTE | 2018-03-03 14:46 | ED PDOC ---
HPI: Chest Pain Time Seen by Provider: 03/03/18 12:29 Chief Complaint (Nursing): Chest Pain Chief Complaint (Provider): Chest Pain History Per: Patient History/Exam Limitations: no limitations Current Symptoms Are (Timing): Still Present Additional Complaint(s): Evie Sky is a 57 year old female with a past medical history of HTN, diabetes, HLD and arthritis, who presents to the emergency department complaining of chest pain, onset x3 days, that radiated to left arm. Chest pain is associated with mild left sided headache. Pain was described as constant earlier but now the arm pain is gone and she is complaining of mild chest pain with left arm numbness. Patient denies any difficulty breathing, weakness, shortness of breath, leg swelling or syncope. PMD: [facility] Against Medical Advice - AMA Patient Left Against Medical Advice: The patient declines admission to the hospital and wishes to leave the Emergency Department. This action is against my medical advice. This decision was made wi th informed refusal. The patient was told that admission to the hospital is necessary. Explanation of the reasons why were discussed. The risks of leaving were explained to the patient and include, but are not limited to, worsening of known or currently unknown conditions, permanent disability and from undiagnosed or untreated conditions. The patient has the capacity to make this informed decision and understands my explanation of the current medical problem and risks of leaving. The patient voluntarily accepts these risks and signed an AMA form documenting our conversation. The patient was given the opportunity to ask questions and reconsider. The patient was encouraged to return to the Emergency Department at any time for further care. Past Medical History Reviewed: Historical Data, Nursing Documentation, Vital Signs Vital Signs: Last Vital Signs Temp 98.3 F 03/03/18 12:10 Pulse 79 03/03/18 12:10 Resp 20 03/03/18 12:10 BP 144/79 03/03/18 12:10 Pulse Ox 98 03/03/18 12:10 - Medical History PMH: Diabetes, HTN, Hypercholesterolemia, Hyperlipidemia Denies: Chronic Kidney Disease - Surgical History Surgical History: (x 2) - Family History Family History: States: Unknown Family Hx - Home Medications Home Medications: Ambulatory Orders Medication Instructions Recorded RX: Simvastatin [Zocor] 40 mg PO HS 11/08/14 RX: Hydrochlorothiazide [HCTZ] 12.5 mg PO DAILY 08/26/15 RX: metFORMIN [glucOPHAGE] 500 mg PO BID 08/17/16 RX: Aspirin [Aspirin Chewable] 81 mg PO DAILY 08/18/16 RX: Atenolol [Tenormin] 25 mg PO DAILY #0 tab 08/18/16 RX: Atorvastatin [Lipitor] 20 mg PO HS #0 tab 08/18/16 RX: GlipiZIDE [Glucotrol] 5 mg PO DAILY #30 08/18/16 RX: hydroCHLOROthiazide [Microzide] 12.5 mg PO DAILY cap 08/18/16 Ibuprofen [Motrin Tab] 800 mg PO Q8 PRN #20 tab 07/06/17 Meloxicam [Mobic] 1 - 2 tab PO DAILY PRN #30 tab 11/07/17 RX: Methocarbamol [Robaxin] 500 mg PO TID PRN #15 tab 11/07/17 - Allergies Allergies/Adverse Reactions: Allergies Allergy/AdvReac Type Severity Reaction Status Date / Time No Known Allergies Allergy Verified 03/03/18 12:10 YANA Risk Score for UA/NSTEMI - YANA Risk Score Age > 64: YES 3 or more CAD Risk Factors: NO Known CAD (Stenosis greater than 50%): NO Aspirin use in past 7 days: NO Severe Angina: YES EKG ST changes greater than 0.5mm: NO Positive Cardiac Marker: NO YANA Score: 2 Risk %: 8% Wells Criteria for PE - Wells Criteria for Pulmonary Embolism Clinical Signs and Symptoms of DVT: No P.E is #1 Diagnosis, or Equally Likely: No Heart Rate >100: No Immobilization at least 3 days;Surgery previous 4 weeks: No Previous, objectively diagnosed PE or DVT: No Hemoptysis: No Malignancy w/treatment within 6 months, or palliative: No Total Score: 0 Review of Systems ROS Statement: Except As Marked, All Systems Reviewed And Found Negative Respiratory: Negative for: Shortness of Breath Musculoskeletal: Positive for: Arm Pain (left arm pain). Negative for: Leg Pain (leg swelling) Neurological: Positive for: Numbness (left arm numbness), Headache. Negative for: Other (syncope) Physical Exam - Reviewed Nursing Documentation Reviewed: Yes Vital Signs Reviewed: Yes - Physical Exam Appears: Positive for: Non-toxic, No Acute Distress Head Exam: Positive for: ATRAUMATIC, NORMOCEPHALIC Skin: Positive for: Normal Color, Warm, Dry Eye Exam: Positive for: Normal appearance, EOMI, PERRL Neck: Positive for: Normal, Painless ROM, Supple Cardiovascular/Chest: Positive for: Regular Rate, Rhythm. Negative for: Murmur Respiratory: Positive for: Normal Breath Sounds. Negative for: Respiratory Distress Gastrointestinal/Abdominal: Positive for: Normal Exam, Soft. Negative for: Tenderness Back: Positive for: Normal Inspection. Negative for: L CVA Tenderness, R CVA Tenderness, Vertebral Tenderness Extremity: Positive for: Normal ROM. Negative for: Pedal Edema, Deformity Neurologic/Psych: Positive for: Alert, Oriented (x3). Negative for: Motor/Sensory Deficits - Laboratory Results Result Diagrams: 03/03/18 13:25 03/03/18 13:25 - ECG O2 Sat by Pulse Oximetry: 98 (RA) Pulse Ox Interpretation: Normal Medical Decision Making Medical Decision Making: Initial Time: 12:47 Initial Impression: Chest pain Differential diagnosis includes but not limited to acute coronary syndrome Plan: --EKG --Aspirin --325 mg PO --desk monitor --BMP --Troponin I --CBC with differential --Chest X-ray 13:55 Chest X-ray FINDINGS: LUNGS: Clear. PLEURA: No pneumothorax or pleural fluid seen. CARDIOVASCULAR: No aortic atherosclerotic calcification present. Normal. OSSEOUS STRUCTURES: No significant abnormalities. VISUALIZED UPPER ABDOMEN: Normal. OTHER FINDINGS: None. IMPRESSION: No active disease. No acute/significant interval changes. Scribe Attestation: Documented by Flavio Holden, acting as a scribe for Savannah Upton MD. Provider Scribe Attestation: All medical record entries made by the Scribe were at my direction and personally dictated by me. I have reviewed the chart and agree that the record accurately reflects my personal performance of the history, physical exam, medical decision making, and the department course for this patient. I have also personally directed, reviewed, and agree with the discharge instructions and disposition. Disposition - Clinical Impression Clinical Impression: Chest pain, Arm paresthesia, left, Left against medical advice - Patient ED Disposition Is Patient to be Admitted: No Doctor Will See Patient In The: Office Counseled Patient/Family Regarding: Studies Performed, Diagnosis, Need For Followup - Disposition Referrals: [facility] [Outside] Disposition: Against Medical Advice Disposition Time: 15:20 Condition: GOOD Additional Instructions: EVIE SKY, thank you for letting us take care of you today. Your provider was Savannah Upton MD and you were treated for CHEST PAIN. The emergency medical care you received today was directed at your acute symptoms. If you were prescribed any medication, please fill it and take as directed. It may take several days for your symptoms to resolve. Return to the Emergency Department if your symptoms worsen, do not improve, or if you have any other problems. Please contact your doctor or call one of the physicians/clinics you have been referred to that are listed on the Patient Visit Information form that is included in your discharge packet. Bring any paperwork you were given at discharge with you along with any medications you are taking to your follow up visit. Our treatment cannot replace ongoing medical care by a primary care provider outside of the emergency department. Thank you for allowing the [facility] team to be part of your care today. If you had an X-Ray or CT scan: A Radiologist will review the ED reading if any change in treatment is needed we will contact you. If you had a blood, urine, or wound culture: It will take several days for the results, if any change in treatment is needed we will contact you. If you had an STI test: It will take 48 hours for the results. Please call after 1 week if you have not heard back. Instructions: Chest Pain, Paresthesias (DC), Leaving Against Medical Advice Forms: [employer] (Kazakh) Print Language: MALAY
[2018-03-04 00:06] VITALS: BMI 31.8
[2018-03-04 00:07] VITALS: BP 124/81; PULSE 61; RESP 16; TEMP 98
--- NOTE | 2018-03-04 09:11 | CARD ---
APPROVED REPORT Date of service: 03/03/2018 EKG Measurement Heart [id number] <Conclusion> Normal sinus rhythm Nonspecific T wave abnormality Abnormal ECG
[2018-03-04 21:12] VITALS: O2SAT 98
== END 2018-03-03 15:35 | disposition left against medical advice (07) ==
LOC: H.ER 11:57
DX: R07.89 Other chest pain (principal); R20.2 Paresthesia of skin; E11.9 Type 2 diabetes mellitus without complications; E78.00 Pure hypercholesterolemia, unspecified; I10 Essential (primary) hypertension; Z79.82 Long term (current) use of aspirin; Z79.84 Long term (current) use of oral hypoglycemic drugs

== ENCOUNTER 2018-06-09 10:10 | Emergency (ER) | payer SELFPAY ==
[2018-06-09 10:14] VITALS: BMI 34.0
[2018-06-09 10:15] VITALS: TEMP 98.2
[2018-06-09] MEDS ORDERED: Sodium Chloride 0.9% 1,000 ML IV SCH (11:00)
[2018-06-09 11:14] LABS: BASO % 0.3 % (0.0-2.0); EOS % 0.3 % (0.0-4.0); HEMOGLOBIN 13.4 g/dL (12.0-16.0); LYMPH # 0.6 K/uL (1.0-4.3); LYMPH % 8.1 % (20.0-40.0); MEAN CELL VOLUME 88.3 fl (81.0-99.0); MEAN CORPUSCULAR HEMOGLOBIN 29.2 pg (27.0-31.0); MEAN CORPUSCULAR HGB CONC 33.1 g/dL (33.0-37.0); MONO # 0.3 K/uL (0.0-0.8); MONO % 3.9 % (0.0-10.0); NEUT # 6.9 K/uL (1.8-7.0); NEUT % 87.4 % (50.0-75.0); PLATELET COUNT 271 K/uL (130-400); RBC 4.59 Mil/uL (3.80-5.20); RED CELL DISTRIBUTION WIDTH 13.7 % (11.5-14.5); WHITE BLOOD COUNT 7.9 K/uL (4.8-10.8)
[2018-06-09 11:25] LABS: ALB/GLOB RATIO 1.3 (1.0-2.1); ALBUMIN 4.4 g/dL (3.5-5.0); ALT/SGPT 30 U/L (9-52); AST/SGOT 42 U/L (14-36); BLOOD UREA NITROGEN 26 mg/dl (7-17); CALCIUM 9.6 mg/dL (8.4-10.2); GFR NON-AFRICAN AMERICAN > 60; LIPASE 1717 U/L (23-300)
--- NOTE | 2018-06-09 11:31 | ED PDOC ---
HPI: Abdomen Chief Complaint (Provider): vomitting, diarrhea History Per: Patient Onset/Duration Of Symptoms: Hrs (since 2 am) Outside of [place] travel?: No Current Symptoms Are (Timing): Still Present Severity: Mild Location Of Pain/Discomfort: Epigastric Quality Of Discomfort: Unable To Describe Associated Symptoms: Nausea, Vomiting, Diarrhea Exacerbating Factors: Food Alleviating Factors: None Last Bowel Movement: Today Additional Complaint(s): 57 yo F with HTN, HLD, NIDDM2 presented to ED for eval of vomiting, nausea, and diarrhea since 2 am. Pt woke up at 2 am and vomited; has vomited about 10x in the last 10 hrs, NBNB vomiting. Had 2 episodes watery, nonbloody diarrhea as well. Has not been able to keep water/tea down. Denies eating new foods and did not eat anything different/what she thinks was spoiled, denies anyone else in home having same symptoms. Symptoms accompanied by epigastric discomfort; patient does not describe pain but rather discomfort. No chest pain, no shortness of breath, no dysuria. Med hx: HTN, HLD, NIDDM2 Sur c-sec and hysterectomy Meds: lisinopril, atorvastatin, metformin Soc: denies tobacco alcohol drug use Allergies: nkda <Karina Borrero - Last Filed: 06/09/18 16:25> <Ashley Tamayo - Last Filed: 06/13/18 04:48> Time Seen by Provider: 06/09/18 10:29 Chief Complaint (Nursing): Abdominal Pain Supervising Attending Note - Supervising Attending Note The Documented history was done by the: Physician Principal Automation Engineer The documented physical exam was done by the: Physician Principal Automation Engineer The documented procedures were done by the: Physician Principal Automation Engineer - Attestation: I have personally seen and examined this patient.: Yes I have fully participated in the care of the patient.: Yes I have reviewed all pertinent clinical information: Yes <Ashley Tamayo - Last Filed: 06/13/18 04:48> Past Medical History Vital Signs: Last Vital Signs Temp 98.2 F 06/09/18 10:14 Pulse 100 H 06/09/18 10:14 Resp 16 06/09/18 10:14 BP 128/79 06/09/18 10:14 Pulse Ox 97 06/09/18 10:14 - Medical History PMH: Diabetes, HTN, Hypercholesterolemia, Hyperlipidemia Denies: Chronic Kidney Disease - Surgical History Surgical History: (x 2) - Family History Family History: States: Unknown Family Hx - Social History Alcohol: None Drugs: Denies <Karina Borrero - Last Filed: 06/09/18 16:25> Vital Signs: Last Vital Signs Temp 98.2 F 06/09/18 15:58 Pulse 78 06/09/18 15:58 Resp 18 06/09/18 15:58 BP 127/75 06/09/18 15:58 Pulse Ox 100 06/09/18 15:58 <Ashley Tamayo - Last Filed: 06/13/18 04:48> - Home Medications Home Medications: Ambulatory Orders Medication Instructions Recorded Simvastatin [Zocor] 40 mg PO HS 11/08/14 Hydrochlorothiazide [HCTZ] 12.5 mg PO DAILY 08/26/15 metFORMIN [glucOPHAGE] 500 mg PO BID 08/17/16 Aspirin [Aspirin Chewable] 81 mg PO DAILY 08/18/16 Atenolol [Tenormin] 25 mg PO DAILY #0 tab 08/18/16 Atorvastatin [Lipitor] 20 mg PO HS #0 tab 08/18/16 GlipiZIDE [Glucotrol] 5 mg PO DAILY #30 08/18/16 hydroCHLOROthiazide [Microzide] 12.5 mg PO DAILY cap 08/18/16 Ibuprofen [Motrin Tab] 800 mg PO Q8 PRN #20 tab 07/06/17 Meloxicam [Mobic] 1 - 2 tab PO DAILY PRN #30 tab 11/07/17 Methocarbamol [Robaxin] 500 mg PO TID PRN #15 tab 11/07/17 Naproxen 500 mg PO BID #14 tab 06/09/18 Ondansetron ODT [Zofran ODT] 4 mg PO Q6 #30 odt 06/09/18 - Allergies Allergies/Adverse Reactions: Allergies Allergy/AdvReac Type Severity Reaction Status Date / Time No Known Allergies Allergy Verified 03/03/18 12:10 Review of Systems Constitutional: Negative for: Fever, Chills, Sweats Respiratory: Negative for: Cough, Shortness of Breath Gastrointestinal: Positive for: Nausea, Vomiting, Abdominal Pain, Diarrhea Genitourinary Female: Negative for: Dysuria, Frequency Musculoskeletal: Positive for: Back Pain <Karina Borrero - Last Filed: 06/09/18 16:25> Physical Exam - Physical Exam Appears: Positive for: Uncomfortable (mildly uncomfortable) Head Exam: Positive for: ATRAUMATIC, NORMAL INSPECTION Skin: Positive for: Warm, Dry. Negative for: Jaundice Eye Exam: Positive for: EOMI ENT: Positive for: Pharynx Is (clear of exudates), Other (moist mucous membranes) Neck: Positive for: Painless ROM Cardiovascular/Chest: Positive for: Regular Rate, Rhythm. Negative for: Edema Respiratory: Positive for: Normal Breath Sounds. Negative for: Respiratory Distress Gastrointestinal/Abdominal: Positive for: Bowel Sounds, Soft, Tenderness (epigastric) Extremity: Negative for: Pedal Edema Neurologic/Psych: Positive for: Alert, Oriented <Karina Borrero - Last Filed: 06/09/18 16:25> - Laboratory Results Result Diagrams: 06/09/18 11:00 06/09/18 11:00 Lab Results: Total Bilirubin 0.3 mg/dl (0.2-1.3) 06/09/18 11:00 AST 42 U/L (14-36) H D 06/09/18 11:00 ALT 30 U/L (9-52) 06/09/18 11:00 Alkaline Phosphatase 79 U/L (38-126) 06/09/18 11:00 Total Protein 7.8 G/DL (6.3-8.2) 06/09/18 11:00 Albumin 4.4 g/dL (3.5-5.0) 06/09/18 11:00 Globulin 3.4 gm/dL (2.2-3.9) 06/09/18 11:00 Albumin/Globulin Ratio 1.3 (1.0-2.1) 06/09/18 11:00 Lipase 1717 U/L (23-300) H 06/09/18 11:00 - ECG O2 Sat by Pulse Oximetry: 97 <Karina Borrero - Last Filed: 06/09/18 16:25> - Laboratory Results Result Diagrams: 06/09/18 11:00 06/09/18 11:00 Lab Results: Total Bilirubin 0.3 mg/dl (0.2-1.3) 06/09/18 11:00 AST 42 U/L (14-36) H D 06/09/18 11:00 ALT 30 U/L (9-52) 06/09/18 11:00 Alkaline Phosphatase 79 U/L (38-126) 06/09/18 11:00 Total Protein 7.8 G/DL (6.3-8.2) 06/09/18 11:00 Albumin 4.4 g/dL (3.5-5.0) 06/09/18 11:00 Globulin 3.4 gm/dL (2.2-3.9) 06/09/18 11:00 Albumin/Globulin Ratio 1.3 (1.0-2.1) 06/09/18 11:00 Lipase 1717 U/L (23-300) H 06/09/18 11:00 <Ashley Tamayo - Last Filed: 06/13/18 04:48> Medical Decision Making Medical Decision Makin yo F with abdominal discomfort, nausea and vomiting. Initial plan - CBC - CMP - Lipase - 1L NS bolus - zofran 4 mg IVP - protonix 40 mg IVP - pepcid 40 mg IVP - Abdominal/GB u/s 1330 Lipase 1717. Pt verbalized relief of nausea, however now more abdominal pain w/ back pain. - CT Abd/Pelvis w/ IV contrast ordered 1600 - Abd/Pelvis CT : Mild cardiomegaly and small hiatal hernia. Pancreas unremarkable Gallbladder and bile ducts- unremarkable. Kidneys and Ureters - No obstructive uropathy or perinephric reaction. Small sub cm lucencies are seen at mid lower pole left renal parenchyma too small to characterize. A punctate intrarenal calculus is nonobstructive at midpole left kidney. Bowel - unremarkable, no obstruction. No gross mural thickening. Moderate multilevel lumbar spondylosis upper lumbar spine most affected. Hepatic steatosis. Biliary tree otherwise unremarkable. Please see report in EMR for full report. 1610 Patient stating she is feeling better, no pain, not nauseous at this time. Vitals are stable. No episodes of vomiting in ED. Discussed that she is stable for d/c and that an appointment was scheduled for her in 1 week at the [facility], as well as medication for anti-nausea will be prescribed. Patient and family at bedside verbalized understanding. All above discussed w/ Dr. Tamayo. <Karina Borrero - Last Filed: 06/09/18 16:25> Disposition - Patient ED Disposition Is Patient to be Admitted: No - Disposition Disposition: Routine/Home <Karina Borrero - Last Filed: 06/09/18 16:25> - Disposition Disposition: Routine/Home Disposition Time: 16:01 <Ashley Tamayo - Last Filed: 06/13/18 04:48> - Clinical Impression Clinical Impression: Gastroenteritis, Abdominal pain - Disposition Referrals: [facility] [Provider Group] - 06/17/18 10:40 am (PLEASE ARRIVE 20-30 MIN BEFORE YOUR APPOINTMENT YOU CAN CALL [phone] TO CHANGE YOUR APPOINTMENT TIME) Condition: STABLE Prescriptions: Naproxen 500 mg PO BID #14 tab Ondansetron ODT [Zofran ODT] 4 mg PO Q6 #30 odt Instructions: Acute Abdomen (Belly Pain), Adult (DC), Viral Gastroenteritis, Adult (DC) Forms: Yub (Belarusian) Print Language: TAJIK
[2018-06-09 11:44] LABS: LYMPHOCYTE 11 % (20-50); MONOCYTE 4 % (0-10); NEUTROPHIL 85 % (42-75); TOTAL CELLS COUNTED 100
[2018-06-09 11:46] LABS: ANISOCYTOSIS SLIGHT; LARGE PLATELETS PRESENT; OVALOCYTES SLIGHT
[2018-06-09 11:48] LABS: PLATELET ESTIMATE NORMAL (NORMAL)
--- NOTE | 2018-06-09 13:38 | US ---
Date of service: 06/09/2018 HISTORY: GB assessment, please COMPARISON: 08/22/2015 TECHNIQUE: Sonographic evaluation of the right upper quadrant of the abdomen. FINDINGS: LIVER: Measures 13.4 cm in length. Hepatopedal blood flow. Fatty infiltration manifest ultrasonographically as increased echogenicity of the liver parenchyma. No mass. No intrahepatic bile duct dilatation. GALLBLADDER: Unremarkable. No gallstones. COMMON BILE DUCT: Measures 5.9 mm. No stones. No dilatation. PANCREAS: Unremarkable as visualized. No mass. No ductal dilatation. RIGHT KIDNEY: Measures 4.9 x 8.9 cm in length. Normal echogenicity. No calculus, mass, or hydronephrosis. AORTA: No aneurysmal dilatation. IVC: Unremarkable. OTHER FINDINGS: None . IMPRESSION: Negative study. No significant interval change compared to the prior examination(s).
--- NOTE | 2018-06-09 15:56 | CT ---
Date of service: 06/09/2018 PROCEDURE: CT Abdomen and Pelvis with contrast HISTORY: abd pain rad to back COMPARISON: Noncontrast abdomen pelvis CT 01/05/2010. TECHNIQUE: Following the intravenous administration of iodinated contrast material, a CT examination of the abdomen and pelvis was performed from the domes of the diaphragms to the symphysis pubis with reformatted datasets provided in axial, sagittal and coronal planes. Oral contrast was not administered as per referring physician request. Contrast dose: Omnipaque 300, 95 cc Radiation dose: Total exam DLP = 915.35 mGy-cm. This CT exam was performed using one or more of the following dose reduction techniques: Automated exposure control, adjustment of the mA and/or kV according to patient size, and/or use of iterative reconstruction technique. FINDINGS: LOWER THORAX: There is mild cardiomegaly and a small hiatal hernia identified. No definite pulmonary vascular congestion appreciable. LIVER: Mild hepatic steatosis identified without focal hepatic findings. No gross lesion or ductal dilatation. GALLBLADDER AND BILE DUCTS: Unremarkable. PANCREAS: Unremarkable. No gross lesion or ductal dilatation. SPLEEN: Unremarkable. ADRENALS: Unremarkable. No mass. KIDNEYS AND URETERS: No obstructive uropathy or perinephric reaction bilaterally. No delayed nephrogram at either kidney. Small sub cm lucencies are seen at the mid lower pole left renal parenchyma too small to characterize. A punctate intrarenal calculus is nonobstructive at the midpole left kidney. The ureters appear normal in caliber throughout. VASCULATURE: Unremarkable. No aortic aneurysm. No aortic atherosclerotic calcification or mural plaque present. BOWEL: Unremarkable. No obstruction. No gross mural thickening. APPENDIX: No CT evidence of appendicitis. The appendix not clearly identified. PERITONEUM: Unremarkable. No free fluid. No free air. LYMPH NODES: No significant lymphadenopathy identified. BLADDER: Unremarkable. REPRODUCTIVE: Prior hysterectomy suggested. Clinically correlate. BONES: No acute fracture. OTHER FINDINGS: None. IMPRESSION: 1. No obstructive uropathy bilaterally or perinephric reaction. A few small lucencies are seen at the mid to lower pole left kidney too small to characterize and punctate intrarenal calculus is identified at the midpole left kidney, nonobstructive. 2. Moderate multilevel lumbar spondylosis upper mid lumbar spine most affected. No fracture or spondylolisthesis appreciated grossly. 3. Hepatic steatosis. Biliary tree otherwise unremarkable. 4. Prior hysterectomy suggested. Clinically correlate. 5. Incidental small hiatal hernia and mild cardiomegaly.
[2018-06-09 15:59] VITALS: BP 127/75; PULSE 78; RESP 18
[2018-06-09 16:14] VITALS: O2SAT 97
== END 2018-06-09 16:46 | disposition home or self-care (01) ==
LOC: H.ER 10:10 → SUPCPDRO 10:10 → H.ER 16:46
DX: K52.9 Noninfective gastroenteritis and colitis, unspecified (principal); R10.9 Unspecified abdominal pain; E11.9 Type 2 diabetes mellitus without complications; E78.00 Pure hypercholesterolemia, unspecified; I10 Essential (primary) hypertension; Z79.84 Long term (current) use of oral hypoglycemic drugs
CPT/HCPCS: 74177; 76705; 80053; 83690; 85025; 96374; 96375; 99285; C9113; J2405; J7030

== ENCOUNTER 2018-07-19 10:25 | Emergency (ER) | payer SELFPAY ==
[2018-07-19 11:22] VITALS: BMI 34.9
[2018-07-19 12:31] LABS: SQUAMOUS EPITHIAL 2 /hpf (0-5); URINE BACTERIA RARE (<OCC); URINE BILIRUBIN NEGATIVE (NEGATIVE); URINE BLOOD SMALL (NEGATIVE); URINE CLARITY SLIGHTY-CLOUDY (Clear); URINE COLOR YELLOW (YELLOW); URINE GLUCOSE (UA) NEG (NEGATIVE); URINE LEUKOCYTE ESTERASE NEG Leu/uL (Negative); URINE PROTEIN NEGATIVE (NEGATIVE); URINE UROBILINOGEN 0.2-1.0 mg/dL (0.2-1.0)
[2018-07-19 13:06] LABS: BASO # 0.1 K/uL (0.0-0.2); BASO % 0.7 % (0.0-2.0); EOS # 0.2 K/uL (0.0-0.7); EOS % 2.4 % (0.0-4.0); HEMOGLOBIN 12.1 g/dL (12.0-16.0); LYMPH # 3.5 K/uL (1.0-4.3); LYMPH % 48.2 % (20.0-40.0); MEAN CELL VOLUME 88.2 fl (81.0-99.0); MEAN CORPUSCULAR HEMOGLOBIN 28.9 pg (27.0-31.0); MEAN CORPUSCULAR HGB CONC 32.8 g/dL (33.0-37.0); MEAN PLATELET VOLUME 8.3 fl (7.2-11.7); MONO # 0.5 K/uL (0.0-0.8); MONO % 7.1 % (0.0-10.0); NEUT % 41.6 % (50.0-75.0); NRBC % 0.1 % (0.0-0.0); RBC 4.18 Mil/uL (3.80-5.20); RED CELL DISTRIBUTION WIDTH 13.3 % (11.5-14.5); WHITE BLOOD COUNT 7.2 K/uL (4.8-10.8)
[2018-07-19 13:20] LABS: ALB/GLOB RATIO 1.3 (1.0-2.1); ALBUMIN 4.5 g/dL (3.5-5.0); ALT/SGPT 30 U/L (9-52); AST/SGOT 32 U/L (14-36); BLOOD UREA NITROGEN 11 mg/dl (7-17); CALCIUM 9.4 mg/dL (8.4-10.2); GFR NON-AFRICAN AMERICAN > 60
--- NOTE | 2018-07-19 14:04 | ED PDOC ---
HPI: Back Time Seen by Provider: 07/19/18 11:24 Chief Complaint (Nursing): Back Pain Chief Complaint (Provider): BACK PAIN/PELVIC PAIN History Per: Patient History/Exam Limitations: no limitations Onset/Duration Of Symptoms: Days Current Symptoms Are (Timing): Constant Quality Of Discomfort: "Pain" Severity: Moderate Pain Scale Rating Of: 6 Previous Symptoms: Back Pain Associated Symptoms: None Exacerbating Factor(s): Turning, Movement, Standing Additional History Per: Patient Additional Complaint(s): 57 Y/O FEMALE C/O MID LOWER BACK PAIN AND LEFT PELVIC PAIN FOR 5 DAYS. PATIENT REPORTS SHE WAS RECENTLY SEEN IN ED FOR SAME AND DX WITH SMALL RENAL CALCULUS TO LEFT KIDNEY. PATIENT STATES SHE HAS BEEN TAKING OTC MEDS WITHOUT ANY RELIEF. DENIES URINARY COMPLAINTS. BACK PAIN WORSENS WITH MOVEMENT RAD TO BILAT LEGS UP TO THE KNEES. DENIES NUMBNESS, FEVER, CP, SOB, INVOLUNTARY RELEASE OF URINE OR STOOL. - Risk Factors AAA Risk Factors: Pos: Older Than 49 Years Of Age, Hypertension Neg: Connective Tissue Disease, Marfan's Syndrome, Mracio-Danlos Syndrome, Prior AAA, 1st Degree Relative/s With AAA Past Medical History Vital Signs: Last Vital Signs Temp 97 F L 07/19/18 11:20 Pulse 78 07/19/18 11:20 Resp 18 07/19/18 11:20 BP 127/75 07/19/18 11:20 Pulse Ox 98 07/19/18 11:20 - Medical History PMH: Diabetes, HTN, Hypercholesterolemia, Hyperlipidemia Denies: Chronic Kidney Disease - Surgical History Surgical History: (x 2) - Family History Family History: States: Unknown Family Hx - Immunization History Hx Tetanus Toxoid Vaccination: No Hx Influenza Vaccination: No Hx Pneumococcal Vaccination: No - Home Medications Home Medications: Ambulatory Orders Medication Instructions Recorded Simvastatin [Zocor] 40 mg PO HS 11/08/14 Hydrochlorothiazide [HCTZ] 12.5 mg PO DAILY 08/26/15 metFORMIN [glucOPHAGE] 500 mg PO BID 08/17/16 Aspirin [Aspirin Chewable] 81 mg PO DAILY 08/18/16 Atenolol [Tenormin] 25 mg PO DAILY #0 tab 08/18/16 Atorvastatin [Lipitor] 20 mg PO HS #0 tab 08/18/16 GlipiZIDE [Glucotrol] 5 mg PO DAILY #30 08/18/16 hydroCHLOROthiazide [Microzide] 12.5 mg PO DAILY cap 08/18/16 Ibuprofen [Motrin Tab] 800 mg PO Q8 PRN #20 tab 07/06/17 Meloxicam [Mobic] 1 - 2 tab PO DAILY PRN #30 tab 11/07/17 Methocarbamol [Robaxin] 500 mg PO TID PRN #15 tab 11/07/17 Naproxen 500 mg PO BID #14 tab 06/09/18 Ondansetron ODT [Zofran ODT] 4 mg PO Q6 #30 odt 06/09/18 Cyclobenzaprine [Cyclobenzaprine 10 mg PO Q8H PRN #15 tab 07/19/18 HCl] - Allergies Allergies/Adverse Reactions: Allergies Allergy/AdvReac Type Severity Reaction Status Date / Time No Known Allergies Allergy Verified 03/03/18 12:10 Physical Exam - Reviewed Nursing Documentation Reviewed: Yes Vital Signs Reviewed: Yes - Physical Exam Appears: Positive for: Well, Non-toxic, No Acute Distress Head Exam: Positive for: ATRAUMATIC, NORMAL INSPECTION, NORMOCEPHALIC Skin: Positive for: Normal Color, Warm, DRY Eye Exam: Positive for: Normal appearance, PERRL ENT: Positive for: Normal ENT Inspection Neck: Positive for: Normal, Painless ROM Cardiovascular/Chest: Positive for: Regular Rate, Rhythm Respiratory: Positive for: CNT, Normal Breath Sounds Pulses-Femoral (L): 2+ Pulses-Femoral (R): 2+ Pulses-Radial (L): 2+ Pulses-Radial (R): 2+ Gastrointestinal/Abdominal: Positive for: Normal Exam, Bowel Sounds, Soft. Negative for: Tenderness Pelvic Exam: Positive for: Tender Adnexa Back: Positive for: Normal Inspection Extremity: Positive for: Normal ROM Neurological/Psych: Positive for: Awake, Alert, Normal Tone, Oriented - Laboratory Results Result Diagrams: 07/19/18 12:56 07/19/18 12:56 Lab Results: Total Bilirubin 0.2 mg/dl (0.2-1.3) 07/19/18 12:56 AST 32 U/L (14-36) 07/19/18 12:56 ALT 30 U/L (9-52) 07/19/18 12:56 Alkaline Phosphatase 72 U/L (38-126) 07/19/18 12:56 Total Protein 8.0 G/DL (6.3-8.2) 07/19/18 12:56 Albumin 4.5 g/dL (3.5-5.0) 07/19/18 12:56 Globulin 3.5 gm/dL (2.2-3.9) 07/19/18 12:56 Albumin/Globulin Ratio 1.3 (1.0-2.1) 07/19/18 12:56 Urine Color Yellow (YELLOW) 07/19/18 12:24 Urine Clarity Slighty-cloudy (Clear) 07/19/18 12:24 Urine pH 6.0 (5.0-8.0) 07/19/18 12:24 Ur Specific [place] 1.012 (1.003-1.030) 07/19/18 12:24 Urine Protein Negative mg/dL (NEGATIVE) 07/19/18 12:24 Urine Glucose (UA) Neg mg/dL (NEGATIVE) 07/19/18 12:24 Urine Ketones Negative mg/dL (NEGATIVE) 07/19/18 12:24 Urine Blood Small (NEGATIVE) 07/19/18 12:24 Urine Nitrate Negative (NEGATIVE) 07/19/18 12:24 Urine Bilirubin Negative (NEGATIVE) 07/19/18 12:24 Urine Urobilinogen 0.2-1.0 mg/dL (0.2-1.0) 07/19/18 12:24 Ur Leukocyte Esterase Neg Lizzy/uL (Negative) 07/19/18 12:24 Urine RBC (Auto) 2 /hpf (0-3) 07/19/18 12:24 Urine Microscopic WBC < 1 /hpf (0-5) 07/19/18 12:24 Ur Squamous Epith Cells 2 /hpf (0-5) 07/19/18 12:24 Urine Bacteria Rare (<OCC) 07/19/18 12:24 - ECG O2 Sat by Pulse Oximetry: 98 Medical Decision Making Medical Decision Making: CBC CMP UA TORADOL US PELVIS 1400: PENDING US REPORT, PT IS AMBULATING WITHOUT DIFFICULTY. PT STATES PAIN HAS IMPROVED. 1527 PELVIC US READ AND REVIEWED BY RADIOLOGIST FINDINGS: UTERUS: Prior total abdominal hysterectomy. No suspicious findings in the expected location of the uterus instead. ENDOMETRIUM: As above. CERVIX: As above. RIGHT OVARY: Not identified. No suspicious adnexal mass or fluid collection appreciable. LEFT OVARY: Measures 2.7 x 0.8 x 2.2 cm. No solid mass. Normal flow. FREE FLUID: No significant free fluid noted. OTHER FINDINGS: None. IMPRESSION: The right ovary uterus not identified status post prior hysterectomy as per patient. Unremarkable left ovary measuring 2.7 cm. No suspicious fluid collection is visualized transabdominally in the pelvis. 1615: CLINICAL FINDINGS DISCUSSED WITH PATIENT. RX GIVEN FOR FLEXERIL 10MG PO. FOLLOW UP WITH PMD, IMPRESSION BACK PAIN. PT GIVEN RETURN TO ED PRECAUTIONS. Disposition - Clinical Impression Clinical Impression: Back pain, Pelvic pain in female - Patient ED Disposition Is Patient to be Admitted: No Counseled Patient/Family Regarding: Diagnosis, Need For Followup - Disposition Disposition: Routine/Home Disposition Time: 16:15 Condition: IMPROVED Prescriptions: Cyclobenzaprine [Cyclobenzaprine HCl] 10 mg PO Q8H PRN #15 tab PRN Reason: Muscle Spasm Instructions: Acute Pelvic Pain Print Language: CROATIAN - POA Present On Arrival: None
--- NOTE | 2018-07-19 15:31 | US ---
Date of service: 07/19/2018 HISTORY: pelvic pain COMPARISON: abdomen pelvis CT with contrast 06/09/2018. TECHNIQUE: Transabdominal pelvic ultrasound was performed with longitudinal and transverse images submitted for interpretation. FINDINGS: UTERUS: Prior total abdominal hysterectomy. No suspicious findings in the expected location of the uterus instead. ENDOMETRIUM: As above. CERVIX: As above. RIGHT OVARY: Not identified. No suspicious adnexal mass or fluid collection appreciable. LEFT OVARY: Measures 2.7 x 0.8 x 2.2 cm. No solid mass. Normal flow. FREE FLUID: No significant free fluid noted. OTHER FINDINGS: None. IMPRESSION: The right ovary uterus not identified status post prior hysterectomy as per patient. Unremarkable left ovary measuring 2.7 cm. No suspicious fluid collection is visualized transabdominally in the pelvis.
[2018-07-19 17:17] VITALS: BP 120/70; RESP 16; TEMP 98.7
[2018-07-19 17:19] VITALS: PULSE 97
[2018-07-19 20:28] VITALS: O2SAT 98
== END 2018-07-19 17:10 | disposition home or self-care (01) ==
LOC: H.ER 10:25
DX: R10.2 Pelvic and perineal pain (principal); M54.9 Dorsalgia, unspecified; E11.9 Type 2 diabetes mellitus without complications; E78.00 Pure hypercholesterolemia, unspecified; I10 Essential (primary) hypertension; Z79.84 Long term (current) use of oral hypoglycemic drugs
CPT/HCPCS: 76856; 80053; 81003; 85025; 96374; 99285; J1885

== ENCOUNTER 2018-07-28 10:06 | Day surgery (SDC) | payer SELFPAY ==
[2018-07-28 10:41] VITALS: BMI 33.3
[2018-07-28 10:55] VITALS: RESP 18
--- NOTE | 2018-07-28 12:09 | CP.SDSHP ---
Same Day Surgery H & P - History Proposed Procedure: US guided FNA of thyroid nodule Pre-Op Diagnosis: thyroid nodule - Allergies Allergies: Allergies No Known Allergies Allergy (Verified 07/28/18 10:41) - Physical Exam Vital Signs: Vital Signs 07/28/18 10:51 Temperature 98.2 F Pulse Rate 77 Respiratory 18 Rate Blood Pressure 134/76 O2 Sat by Pulse 95 Oximetry Mental Status: Alert & Oriented x3 - Impression Impression: Pt with a 3 cm right thyroid nodule. Plan US guided FNA. Pt. Evaluated Today:Candidate for Anesthesia & Procedure: No - Date & Time Date: 07/28/18 Time: 12:09 Short Stay Discharge - Short Stay Discharge Admitting Diagnosis/Reason for Visit: E07.89 Disposition: HOME/ ROUTINE
[2018-07-28] MEDS ORDERED: Lidocaine Hydrochloride 1% 10 ML ONE (12:12)
--- NOTE | 2018-07-28 12:19 | PCM.SURG1 ---
Surgeon's Initial Post Op Note - Surgeon's Notes Surgeon: Obed Rojas MD Silver Solderer: NONE Type of Anesthesia: Local Pre-Operative Diagnosis: Right thyroid nodule Operative Findings: US showed a solid 3 cm right thyroid nodule Post-Operative Diagnosis: Right thyroid nodule Operation Performed: US guided FNA Specimen/Specimens Removed: 5 passes with a 25 g needle Estimated Blood Loss: EBL {In ML}: 1 Blood Products Given: N/A Drains Used: No Drains Post-Op Condition: Good Date of Surgery/Procedure: 07/28/18 Time of Surgery/Procedure: 12:19
[2018-07-28 13:10] VITALS: BP 139/33; PULSE 65; TEMP 98; O2SAT 100
--- NOTE | 2018-07-29 13:32 | CT ---
PROCEDURE: Date of Procedure: 07/28/2018 PROCEDURE: 1. Ultrasound guided FNA of right thyroid nodule, CPT 32265 2. Ultrasound guidance for FNA, 85102 Medications: 2cc 1% Lidocaine HISTORY: Enlarged right thyroid nodule. TECHNIQUE: Following informed consent and procedure time-out, a limited ultrasound patient's neck confirmed the presence of a 3 cm complex right thyroid nodule which is predominantly solid. After the patient's neck was prepped and draped in the usual sterile fashion, the skin was anesthetized with 1% lidocaine. Ultrasound-guided fine needle aspiration was then performed of the dominant right thyroid nodule. A total of 5 passes were made into the nodule with 25 gauge needle under ultrasound guidance. The FNA specimen was sent for routine pathology and genetics . Post biopsy ultrasound showed no hematoma. IMPRESSION: Ultrasound-guided FNA of the dominant right thyroid nodule.
== END 2018-07-28 14:00 | disposition home or self-care (01) ==
LOC: H.OPSURG 10:06
PROVIDERS: ATTEND Emergency Medicine
DX: E04.1 Nontoxic single thyroid nodule (principal); I10 Essential (primary) hypertension; E11.9 Type 2 diabetes mellitus without complications; E78.5 Hyperlipidemia, unspecified